=== PATIENT | male | born 1980 | race Caucasian/White ===

== ENCOUNTER 2017-10-20 14:30 | Inpatient (IN) | payer OTHER ==
[2017-10-20 17:02] VITALS: BMI 29.7
--- NOTE | 2017-10-20 19:44 | HP ---
COWS - Scale Resting Pulse: 0= [place] 80 or Below Sweatin=Flushed/Facial Moisture Restless Observation: 1= Difficult to Sit Still Pupil Size: 1= Pupils >than Normal Bone or Joint Aches: 1= Mild Discomfort Runny Nose/ Eye Tearin= Runny Nose/Eyes GI Upset > 30mins: 2= Nausea/Diarrhea Tremor Observation: 2= Slight Tremor Visible Yawning Observation: 1= 1-2x During Session Anxiety or Irritability: 1=Feels Anxious/Irritable Goose Flesh Skin: 3=Piloerection COWS Score: 16 CIWA Score - CIWA Score Nausea/Vomitin Muscle Tremors: 4-Moderate,w/Arms Extend Anxiety: 2 Agitation: 2 Paroxysmal Sweats: 3 Orientation: 0-Oriented Tacttile Disturbances: 2-Mild Itch/Numbness/Burn Auditory Disturbances: 1-Very Mild Visual Disturbances: 1-Very Mild Sensitivity Headache: 3-Moderate CIWA-Ar Total Score: 20 Admission ROS S - HPI Chief Complaint: I am here for Detox and Rehab. Allergies/Adverse Reactions: Allergies Allergy/AdvReac Type Severity Reaction Status Date / Time No Known Allergies Allergy Verified 10/20/17 19:04 History of Present Illness: 37 yo male with extensive history of opiod and alcohol dependence is here seeking admission to detox. Patient does not have a significant period of sobriety. Exam Limitations: No Limitations - Ebola screening Have you traveled outside of the country in the last 21 days: No (N) Have you had contact with anyone from an Ebola affected area: No Have you been sick,other than usual withdrawal symptoms: No Do you have a fever: No - Review of Systems Constitutional: Night Sweats, Changes in sleep, Unintentional Wgt. Loss EENT: reports: Sinus Pressure Respiratory: reports: Shortness of Breath ("I feel I just cant breathe as good as I normally can") Cardiac: reports: Palpitations GI: reports: Diarrhea : reports: No Symptoms Reported, Other (Hx Hep C) Musculoskeletal: reports: Joint Swelling Integumentary: reports: Pruritus Neuro: reports: Seizure (Last Seizure Summer 2016), Tingling, Dizziness Endocrine: reports: See HPI Hematology: reports: No Symptoms Reported Psychiatric: reports: Judgement Intact, Orientated x3, Anxious, Depressed Other Systems: Reviewed and Negative Patient History - Patient Medical History Hx Anemia: No Hx Asthma: No Hx Chronic Obstructive Pulmonary Disease (COPD): No Hx Cancer: No Hx Cardiac Disorders: No Hx Congestive Heart Failure: No Hx Hypertension: Yes (dx of HTN no meds ) Hx Hypercholesterolemia: No Hx Pacemaker: No HX Cerebrovascular Accident: No Hx Seizures: Yes (hx drug induces seizures, last seizure Summer 2016) Hx Dementia: No Hx Diabetes: No Hx Gastrointestinal Disorders: No Hx Liver Disease: Yes (Hep C) Hx Genitourinary Disorders: No Hx Sexually Transmitted Disorders: No Hx Renal Disease (ESRD): No Hx Human Immunodeficiency Virus (HIV): No Hx Hepatitis C: Yes Hx Depression: Yes Hx Suicide Attempt: No Hx Bipolar Disorder: No Hx Schizophrenia: No - Patient Surgical History Past Surgical History: No Hx Neurologic Surgery: No Hx Cataract Extraction: No Hx Cardiac Surgery: No Hx Lung Surgery: No Hx Breast Surgery: No Hx Breast Biopsy: No Hx Abdominal Surgery: No Hx Appendectomy: No Hx Cholecystectomy: No Hx Genitourinary Surgery: No Hx Section: No Hx Orthopedic Surgery: No Anesthesia Reaction: No - PPD History Previous Implant?: Yes Documented Results: Negative w/o proof PPD to be Administered?: Yes - Reproductive History Patient is a Female of Child Bearing Age (11 -55 yrs old): No - Smoking Cessation Smoking history: Current every day smoker Have you smoked in the past 12 months: Yes Aproximately how many cigarettes per day: 2 Hx Chewing Tobacco Use: No Initiated information on smoking cessation: Yes 'Breaking Loose' booklet given: 10/20/17 - Substance & Tx. History Hx Alcohol Use: Yes Hx Substance Use: Yes (Heroin) Substance Use Type: Alcohol, Heroin Hx Substance Use Treatment: Yes (unable to recall) - Substances Abused Alcohol Route: Oral Frequency: Daily Amount used: LIQUOR- 2 PINTS, Age of first use: 14 Date of Last Use: 10/19/17 Heroin Route: Injection Frequency: Daily Amount used: 15 BAGS Age of first use: 24 Date of Last Use: 10/19/17 Family Disease History - Family Disease History Family Disease History: Other: Father (Alive : No Significant hx ), Mother ( : unkown ) Admission Physical Exam BHS - Vital Signs Vital Signs: Vital Signs - 24 hr 10/20/17 17:01 Temperature 98 F Pulse Rate 73 Respiratory 18 Rate Blood Pressure 137/73 - Physical General Appearance: Yes: No Apparent Distress, Disheveled, Intoxicated HEENTM: Yes: Hearing grossly Normal, Normal ENT Inspection, Normocephalic, Normal Voice, TED, Pharynx Normal Respiratory: Yes: Normal Breath Sounds, No Respiratory Distress, No Accessory Muscle Use Neck: Yes: No masses,lesions,Nodules, Trachea in good position Breast: Yes: Breast Exam Deferred Cardiology: Yes: Regular Rhythm, Regular Rate, S1, S2 Abdominal: Yes: Within Normal Limits Genitourinary: Yes: Other (reports no problems) Back: Yes: Within Normal Limits Musculoskeletal: Yes: Within Normal Limits Extremities: Yes: Within Normal Limits Neurological: Yes: Fully Oriented, Alert, Normal Mood/Affect, Normal Response Integumentary: Yes: Normal Color, Dry, Warm, Track B[place] (Bilateral upper extremities) Lymphatic: Yes: Within Normal Limits - Diagnostic (1) Opioid dependence Current Visit: Yes Status: Chronic Qualifiers: Substance use status: with unspecified opioid-induced disorder Qualified Code(s): F11.29 - Opioid dependence with unspecified opioid-induced disorder (2) Alcohol dependence Current Visit: Yes Status: Chronic Qualifiers: Substance use status: unspecified alcohol-induced disorder Qualified Code(s ): F10.29 - Alcohol dependence with unspecified alcohol-induced disorder (3) History of seizure Current Visit: Yes Status: Chronic (4) Tobacco use Current Visit: Yes Status: Chronic (5) Hypertension Current Visit: Yes Status: Chronic Qualifiers: Hypertension type: essential hypertension Qualified Code(s): I10 - Essential (primary) hypertension Comment: Reports not taking medication Cleared for Admission [facility] - Detox or Rehab [facility] Level of Care: Medically Managed Detox Regimen/Protocol: Methadone/Librium [facility] Breath Alcohol Content Breath Alcohol Content: 0 Urine Drug Screen - Results Drug Screen Negative: No Urine Drug Screen Results: THC-Marijuana, MIS-Cocaine, OPI-Opiates, BZO- Benzodiazepines, MTD-Methadone
[2017-10-20] MEDS ORDERED: MAG HYDROX/AL HYDROX/SIMETH 30 ML UNIT-DOSE CUP PO PRN (20:24)
[2017-10-20] MEDS ORDERED: METHADONE HCL 10 MG TABLET (FOR DETOX USE ONLY) PO ONE ×2 (20:24→23:00)
[2017-10-20] MEDS ORDERED: MAGNESIUM CITRATE 300 ML BOTTLE PO PRN (20:24)
[2017-10-20] MEDS ORDERED: IBUPROFEN 400 MG TABLET (FP) PO PRN (20:24)
[2017-10-20] MEDS ORDERED: MENTHOL/PHENOL 1 EACH UD MM PRN (20:24)
[2017-10-20] MEDS ORDERED: chlordiazePOXIDE HCL 25 MG CAPSULE PO ONE (20:24)
[2017-10-20] MEDS ORDERED: ACETAMINOPHEN 325 MG TABLET (FP) PO PRN (20:24)
[2017-10-20] MEDS ORDERED: chlordiazePOXIDE HCL 25 MG CAPSULE PO PRN (20:24)
[2017-10-20] MEDS ORDERED: NICOTINE POLACRILEX 2 MG GUM BC PRN (20:24)
[2017-10-20] MEDS ORDERED: guaiFENesin/D-METHORPHAN HB 10 ML UNIT-DOSE CUPS PO PRN (20:24)
[2017-10-20] MEDS ORDERED: MAGNESIUM HYDROX 2400MG/30ML ORAL SUSPENSION 30 ML CUP PO PRN (20:24)
[2017-10-20] MEDS ORDERED: P-EPHED 60MG/TRIPROLIDI 2.5MG TABLET PO PRN (20:24)
[2017-10-20] MEDS: THIAMINE HCL 100 MG TABLET (FP) PO SCH (21:17)
[2017-10-20] MEDS: chlordiazePOXIDE HCL 25 MG CAPSULE PO SCH (22:39)
[2017-10-20 23:29] LABS: URINE APPEARANCE TURBID; URINE BILIRUBIN NEGATIVE (NEGATIVE); URINE BLOOD NEGATIVE (NEGATIVE); URINE COLOR YELLOW; URINE GLUCOSE (UA) NEGATIVE (NEGATIVE); URINE KETONE NEGATIVE (NEGATIVE); URINE LEUK ESTERASE NEGATIVE (NEGATIVE); URINE NITRITE NEGATIVE (NEGATIVE); URINE PROTEIN NEGATIVE (NEGATIVE); URINE UROBILINOGEN NEGATIVE mg/dL (0.2-1.0)
[2017-10-21] MEDS: chlordiazePOXIDE HCL 25 MG CAPSULE PO SCH ×4 (05:35→22:20)
[2017-10-21] MEDS ORDERED: METHADONE HCL 10 MG TABLET (FOR DETOX USE ONLY) PO SCH (10:00)
[2017-10-21] MEDS: PRENATAL VITAMINS W/ FOLIC ACID TABLET (FP) PO SCH (10:01)
[2017-10-21] MEDS: NICOTINE 14 MG/24 HOURS TOPICAL PATCH TD SCH (10:01)
--- NOTE | 2017-10-21 10:26 | CONSULT ---
[facility] Psychiatric Consult - Data Date of interview: 10/21/17 Admission source: [facility] Identifying data: First admission to [facility] for this 37 y/o male seeking detox treatment on for alcohol and heroin dependence ( toxicology positive for cocaine and marihuana as well).Patient is without children,homeless,unemployed and currently supported on Public Assistance. Substance Abuse History: Confirmed by patient in this interview.Patient admits to sporadic use of cannabis and cocaine.Details in current [facility] report : Smoking history: Current every day smoker. Have you smoked in the past 12 months: Yes. Aproximately how many cigarettes per day: 2. Hx Chewing Tobacco Use: No. Initiated information on smoking cessation: Yes. 'Breaking Loose' booklet given: 10/20/17. - Substance & Tx. History. Hx Alcohol Use: Yes. Hx Substance Use: Yes (Heroin). Substance Use Type: Alcohol, Heroin. Hx Substance Use Treatment: Yes (unable to recall). - Substances Abused. Alcohol. Route: Oral. Frequency: Daily. Amount used: LIQUOR- 2 PINTS,. Age of first use: 14. Date of Last Use: 10/19/17. Heroin. Route: Injection. Frequency: Daily. Amount used: 15 BAGS. Age of first use: 24. Date of Last Use: 10/19/17 Medical History: Hepatitis C. Psychiatric History: Patient admits to one psychiatric hospitalization at [facility] (2017).Diagnosed with MDD.Prescribed [id number] mg/day + trazodone 25 mg/ hs.Mr Maciel indicates that he has no contact with psychiatrists and that he depends upon his primary care providers for medications refills.Denies history of suicide attempts. Physical/Sexual Abuse/Trauma History: Patient denies. Additional Comment: Urine Drug Screen Results: THC-Marijuana, MIS-Cocaine, OPI- Opiates, BZO-Benzodiazepines, MTD-Methadone.Noted. Mental Status Exam - Mental Status Exam Alert and Oriented to: Time, Place, Person Cognitive Function: Good Patient Appearance: Well Groomed (tattoos on right arm) Mood: Withdrawn (dysphoric), Anxious, Hopeful Affect: Mood Congruent, Constricted Patient Behavior: Passive, Fatigued, Cooperative Speech Pattern: Clear, Appropriate (malagasy-speaking) Voice Loudness: Normal Thought Process: Intact, Goal Oriented Thought Disorder: Not Present Hallucinations: Denies Suicidal Ideation: Denies Homicidal Ideation: Denies Insight/Judgement: Poor Sleep: Poorly, Difficulty falling asleep Appetite: Good Muscle strength/Tone: Normal Gait/Station: Normal Psychiatric Findings - Problem List ([place] 1, 2,3) (1) Alcohol dependence Current Visit: Yes Status: Acute Qualifiers: Substance use status: unspecified alcohol-induced disorder Qualified Code(s ): F10.29 - Alcohol dependence with unspecified alcohol-induced disorder (2) Opioid dependence Current Visit: Yes Status: Acute Qualifiers: Substance use status: with unspecified opioid-induced disorder Qualified Code(s): F11.29 - Opioid dependence with unspecified opioid-induced disorder (3) Cocaine abuse Current Visit: Yes Status: Acute (4) Marijuana abuse Current Visit: Yes Status: Acute (5) Nicotine dependence Current Visit: Yes Status: Acute (6) Substance induced mood disorder Current Visit: Yes Status: Acute (7) Insomnia Current Visit: Yes Status: Acute - Initial Treatment Plan Initial Treatment Plan: Psychoeducation and support provided.Sleep hygiene.Detoxification in progress.Medications : trazodone 50 mg po hs + celexa 10 mg po daily.Ordered.Side effects/benefits of both drugs are discused with the patient.Mr Maciel is made aware of risk of priapism (trazodone),oversedation ,cardiovascular adverse events and suicidal ideation (celexa).No reported history of adverse issues with these medications according to patient.Consent ( verbal) given.Observation.
[2017-10-21 11:05] LABS: HEMATOCRIT 39.5 % (35.4-49); MCH 29.4 pg (25.7-33.7); MCHC 32.8 g/dl (32.0-35.9); MEAN CELL VOLUME 89.6 fl (80-96); PLATELET COUNT 186 K/MM3 (134-434); RBC 4.41 M/mm3 (4.00-5.60); RDW 13.9 % (11.9-15.9); WHITE BLOOD COUNT 5.6 K/mm3 (4.0-10.0)
[2017-10-21 11:07] LABS: CHLORIDE 106 mmol/L (98-107); POTASSIUM 4.4 mmol/L (3.5-5.1); SODIUM 138 mmol/L (136-145)
[2017-10-21 11:13] LABS: ALBUMIN 2.7 g/dl (3.4-5.0); ALK PHOS 123 U/L (45-117); ANION GAP 6 (8-16); BILIRUBIN,TOTAL 0.5 mg/dL (0.2-1.0); BLOOD UREA NITROGEN 17 mg/dL (7-18); CALCIUM 8.2 mg/dL (8.5-10.1); CO2 26 mmol/L (21-32); CREATININE 0.7 mg/dL (0.7-1.3); GLUCOSE,RANDOM 105 mg/dL (74-106); SGOT/AST 54 U/L (15-37); SGPT/ALT 93 U/L (12-78); TOT PROT 6.2 g/dl (6.4-8.2)
--- NOTE | 2017-10-21 12:04 | PN ---
S CIWA - CIWA Score Nausea/Vomitin Muscle Tremors: 2 Anxiety: 2 Agitation: 2 Paroxysmal Sweats: 2 Orientation: 0-Oriented Tacttile Disturbances: 2-Mild Itch/Numbness/Burn Auditory Disturbances: 1-Very Mild Visual Disturbances: 1-Very Mild Sensitivity Headache: 2-Mild CIWA-Ar Total Score: 16 BHS COWS - Scale Resting Pulse: 0= [place] 80 or Below Sweatin= Chills/Flushing Restless Observation: 1= Difficult to Sit Still Pupil Size: 0= Normal to Room Light Bone or Joint Aches: 2= Severe Diffuse Aches Runny Nose/ Eye Tearin= Nasal Congestion GI Upset > 30mins: 2= Nausea/Diarrhea Tremor Observation of Outstretched Hands: 2= Slight Tremor Visible Yawning Observation: 1= 1-2x During Session Anxiety or Irritability: 2=Irritable/Anxious Goose Flesh Skin: 3=Piloerection COWS Score: 15 BHS Progress Note (SOAP) Subjective: Back pain,diarrhea, vomiting, headache and generalized body aches, interrupted sleep Objective: 10/21/17 12:03 Vital Signs 10/21/17 10/21/17 06:12 09:38 Temperature 96 F L 97.4 F L Pulse Rate 64 69 Respiratory 18 20 Rate Blood Pressure 112/66 115/63 Laboratory Last Values WBC 5.6 K/mm3 (4.0-10.0) 10/21/17 08:00 RBC 4.41 M/mm3 (4.00-5.60) 10/21/17 08:00 Hgb 13.0 GM/dL (11.7-16.9) 10/21/17 08:00 Hct 39.5 % (35.4-49) 10/21/17 08:00 MCV 89.6 fl (80-96) 10/21/17 08:00 MCH 29.4 pg (25.7-33.7) 10/21/17 08:00 MCHC 32.8 g/dl (32.0-35.9) 10/21/17 08:00 RDW 13.9 % (11.9-15.9) 10/21/17 08:00 Plt Count 186 K/MM3 (134-434) 10/21/17 08:00 MPV 11.0 fl (7.5-11.1) 10/21/17 08:00 Sodium 138 mmol/L (136-145) 10/21/17 08:00 Potassium 4.4 mmol/L (3.5-5.1) 10/21/17 08:00 Chloride 106 mmol/L (98-107) 10/21/17 08:00 Carbon Dioxide 26 mmol/L (21-32) 10/21/17 08:00 Anion Gap 6 (8-16) L 10/21/17 08:00 BUN 17 mg/dL (7-18) 10/21/17 08:00 Creatinine 0.7 mg/dL (0.7-1.3) 10/21/17 08:00 Creat Clearance w eGFR > 60 (>60) 10/21/17 08:00 Random Glucose 105 mg/dL (74-106) 10/21/17 08:00 Calcium 8.2 mg/dL (8.5-10.1) L 10/21/17 08:00 Total Bilirubin 0.5 mg/dL (0.2-1.0) 10/21/17 08:00 AST 54 U/L (15-37) H 10/21/17 08:00 ALT 93 U/L (12-78) H 10/21/17 08:00 Alkaline Phosphatase 123 U/L (45-117) H 10/21/17 08:00 Total Protein 6.2 g/dl (6.4-8.2) L 10/21/17 08:00 Albumin 2.7 g/dl (3.4-5.0) L 10/21/17 08:00 Urine Color Yellow 10/20/17 20:57 Urine Appearance Turbid 10/20/17 20:57 Urine pH 5.0 (5.0-8.0) 10/20/17 20:57 Ur Specific [place] 1.026 (1.001-1.035) 10/20/17 20:57 Urine Protein Negative (NEGATIVE) 10/20/17 20:57 Urine Glucose (UA) Negative (NEGATIVE) 10/20/17 20:57 Urine Ketones Negative (NEGATIVE) 10/20/17 20:57 Urine Blood Negative (NEGATIVE) 10/20/17 20:57 Urine Nitrite Negative (NEGATIVE) 10/20/17 20:57 Urine Bilirubin Negative (NEGATIVE) 10/20/17 20:57 Urine Urobilinogen Negative mg/dL (0.2-1.0) 10/20/17 20:57 Ur Leukocyte Esterase Negative (NEGATIVE) 10/20/17 20:57 Labs noted Assessment: 10/21/17 12:04 withdrawal sx Plan: Continue detox
--- NOTE | 2017-10-21 13:39 | EKG ---
Test Reason : Blood Pressure : / mmHG Vent. Rate : 067 BPM Atrial Rate : 067 BPM P-R Int : 140 ms QRS Dur : 112 ms QT Int : 424 ms P-R-T Axes : -01 053 056 degrees QTc Int : 448 ms NORMAL SINUS RHYTHM INCOMPLETE RBBB NO PREVIOUS ECGS AVAILABLE Confirmed by TOMI MEJÍA MD ([id number]) on 10/21/2017 1:38:53 PM Referred By: Confirmed By:TOMI MEJÍA MD
[2017-10-21] MEDS: THIAMINE HCL 100 MG TABLET (FP) PO SCH (22:20)
[2017-10-21] MEDS: traZODone HCL 50 MG TABLET (FP) PO SCH (22:20)
[2017-10-22] MEDS: chlordiazePOXIDE HCL 25 MG CAPSULE PO SCH ×3 (06:15→16:49)
[2017-10-22] MEDS: NICOTINE 14 MG/24 HOURS TOPICAL PATCH TD SCH (10:12)
[2017-10-22] MEDS: METHADONE HCL 5 MG TABLET (FOR DETOX USE ONLY) PO SCH (10:12)
[2017-10-22] MEDS: CITALOPRAM HYDROBROMIDE 10 MG TABLET (FP) PO SCH (10:12)
[2017-10-22] MEDS: PRENATAL VITAMINS W/ FOLIC ACID TABLET (FP) PO SCH (10:12)
--- NOTE | 2017-10-22 14:40 | PN ---
S CIWA - CIWA Score Nausea/Vomitin-No Nausea/No Vomiting Muscle Tremors: 4-Moderate,w/Arms Extend Anxiety: 4-Mod. Anxious/Guarded Agitation: 4-Moderately Restless Paroxysmal Sweats: 3 Orientation: 0-Oriented Tacttile Disturbances: 0-None Auditory Disturbances: 0-None Visual Disturbances: 0-None Headache: 0-None Present CIWA-Ar Total Score: 15 S COWS - Scale Resting Pulse: 0= [place] 80 or Below Sweatin=Flushed/Facial Moisture Restless Observation: 1= Difficult to Sit Still Pupil Size: 0= Normal to Room Light Bone or Joint Aches: 1= Mild Discomfort Runny Nose/ Eye Tearin= Runny Nose/Eyes GI Upset > 30mins: 1= Stomach Cramp Tremor Observation of Outstretched Hands: 2= Slight Tremor Visible Yawning Observation: 1= 1-2x During Session Anxiety or Irritability: 2=Irritable/Anxious Goose Flesh Skin: 0=Smooth Skin COWS Score: 12 S Progress Note (SOAP) Subjective: Tremors,sweating,interrupted sleep,restless,body aches Objective: 10/22/17 14:40 Vital Signs - 8 hr 10/22/17 10/22/17 09:48 14:25 Temperature 96.3 F L 97.4 F L Pulse Rate 67 71 Respiratory 20 20 Rate Blood Pressure 110/69 102/62 Laboratory Tests 10/20/17 10/21/17 10/21/17 20:57 08:00 08:00 WBC 5.6 RBC 4.41 Hgb 13.0 Hct 39.5 MCV 89.6 MCH 29.4 MCHC 32.8 RDW 13.9 Plt Count 186 MPV 11.0 Sodium 138 Potassium 4.4 Chloride 106 Carbon Dioxide 26 Anion Gap 6 L BUN 17 Creatinine 0.7 Creat Clearance w eGFR > 60 Random Glucose 105 Calcium 8.2 L Total Bilirubin 0.5 AST 54 H ALT 93 H Alkaline Phosphatase 123 H Total Protein 6.2 L Albumin 2.7 L Urine Color Yellow Urine Appearance Turbid Urine pH 5.0 Ur Specific [place] 1.026 Urine Protein Negative Urine Glucose (UA) Negative Urine Ketones Negative Urine Blood Negative Urine Nitrite Negative Urine Bilirubin Negative Urine Urobilinogen Negative Ur Leukocyte Esterase Negative RPR Titer 10/21/17 08:00 WBC RBC Hgb Hct MCV MCH MCHC RDW Plt Count MPV Sodium Potassium Chloride Carbon Dioxide Anion Gap BUN Creatinine Creat Clearance w eGFR Random Glucose Calcium Total Bilirubin AST ALT Alkaline Phosphatase Total Protein Albumin Urine Color Urine Appearance Urine pH Ur Specific [place] Urine Protein Urine Glucose (UA) Urine Ketones Urine Blood Urine Nitrite Urine Bilirubin Urine Urobilinogen Ur Leukocyte Esterase RPR Titer Nonreactive labs noted Assessment: 10/22/17 14:40 Withdrawal sx. Plan: Continue detox
[2017-10-22] MEDS: traZODone HCL 50 MG TABLET (FP) PO SCH (22:10)
[2017-10-22] MEDS: chlordiazePOXIDE 5 MG CAPSULE PO SCH (22:10)
[2017-10-22] MEDS: THIAMINE HCL 100 MG TABLET (FP) PO SCH (22:10)
[2017-10-22] MEDS: hydrOXYzine PAMOATE 50 MG CAPSULE (FP) PO PRN (22:10)
[2017-10-23] MEDS: chlordiazePOXIDE 5 MG CAPSULE PO SCH ×2 (04:44→10:11)
[2017-10-23] MEDS: METHADONE HCL 5 MG TABLET (FOR DETOX USE ONLY) PO SCH (10:10)
[2017-10-23] MEDS: CITALOPRAM HYDROBROMIDE 10 MG TABLET (FP) PO SCH (10:11)
[2017-10-23] MEDS: NICOTINE 14 MG/24 HOURS TOPICAL PATCH TD SCH (10:11)
[2017-10-23] MEDS: PRENATAL VITAMINS W/ FOLIC ACID TABLET (FP) PO SCH (10:11)
[2017-10-23] MEDS: LOPERAMIDE HCL 2 MG CAPSULE PO PRN ×2 (10:13→17:27)
--- NOTE | 2017-10-23 11:25 | PN ---
[facility] CIWA - CIWA Score Nausea/Vomitin-No Nausea/No Vomiting Muscle Tremors: 4-Moderate,w/Arms Extend Anxiety: 4-Mod. Anxious/Guarded Agitation: 4-Moderately Restless Paroxysmal Sweats: 1-Minimal [place]ms Moist Orientation: 0-Oriented Tacttile Disturbances: 3-Moderate Itch/Numb/Burn Auditory Disturbances: 0-None Visual Disturbances: 0-None Headache: 0-None Present CIWA-Ar Total Score: 16 S Progress Note (SOAP) Subjective: ANXIETY,SWEATS,FATIGUE,INTERMITTENT SLEEP. Objective: 10/23/17 11:24 Vital Signs Temperature 96.5 F L 10/23/17 10:01 Pulse Rate 70 10/23/17 10:01 Respiratory Rate 18 10/23/17 10:01 Blood Pressure 118/74 10/23/17 10:01 O2 Sat by Pulse Oximetry (%) Laboratory Last Values WBC 5.6 K/mm3 (4.0-10.0) 10/21/17 08:00 RBC 4.41 M/mm3 (4.00-5.60) 10/21/17 08:00 Hgb 13.0 GM/dL (11.7-16.9) 10/21/17 08:00 Hct 39.5 % (35.4-49) 10/21/17 08:00 MCV 89.6 fl (80-96) 10/21/17 08:00 MCH 29.4 pg (25.7-33.7) 10/21/17 08:00 MCHC 32.8 g/dl (32.0-35.9) 10/21/17 08:00 RDW 13.9 % (11.9-15.9) 10/21/17 08:00 Plt Count 186 K/MM3 (134-434) 10/21/17 08:00 MPV 11.0 fl (7.5-11.1) 10/21/17 08:00 Sodium 138 mmol/L (136-145) 10/21/17 08:00 Potassium 4.4 mmol/L (3.5-5.1) 10/21/17 08:00 Chloride 106 mmol/L (98-107) 10/21/17 08:00 Carbon Dioxide 26 mmol/L (21-32) 10/21/17 08:00 Anion Gap 6 (8-16) L 10/21/17 08:00 BUN 17 mg/dL (7-18) 10/21/17 08:00 Creatinine 0.7 mg/dL (0.7-1.3) 10/21/17 08:00 Creat Clearance w eGFR > 60 (>60) 10/21/17 08:00 Random Glucose 105 mg/dL (74-106) 10/21/17 08:00 Calcium 8.2 mg/dL (8.5-10.1) L 10/21/17 08:00 Total Bilirubin 0.5 mg/dL (0.2-1.0) 10/21/17 08:00 AST 54 U/L (15-37) H 10/21/17 08:00 ALT 93 U/L (12-78) H 10/21/17 08:00 Alkaline Phosphatase 123 U/L (45-117) H 10/21/17 08:00 Total Protein 6.2 g/dl (6.4-8.2) L 10/21/17 08:00 Albumin 2.7 g/dl (3.4-5.0) L 10/21/17 08:00 Urine Color Yellow 10/20/17 20:57 Urine Appearance Turbid 10/20/17 20:57 Urine pH 5.0 (5.0-8.0) 10/20/17 20:57 Ur Specific [place] 1.026 (1.001-1.035) 10/20/17 20:57 Urine Protein Negative (NEGATIVE) 10/20/17 20:57 Urine Glucose (UA) Negative (NEGATIVE) 10/20/17 20:57 Urine Ketones Negative (NEGATIVE) 10/20/17 20:57 Urine Blood Negative (NEGATIVE) 10/20/17 20:57 Urine Nitrite Negative (NEGATIVE) 10/20/17 20:57 Urine Bilirubin Negative (NEGATIVE) 10/20/17 20:57 Urine Urobilinogen Negative mg/dL (0.2-1.0) 10/20/17 20:57 Ur Leukocyte Esterase Negative (NEGATIVE) 10/20/17 20:57 RPR Titer Nonreactive (NONREACTIVE) 10/21/17 08:00 Assessment: 10/23/17 11:24 WITHDRAWAL SX Plan: CONTINUE DETOX INCREASE BENADRYL 100 MG PO HS
[2017-10-23] MEDS: chlordiazePOXIDE HCL 10 MG CAPSULE PO SCH ×3 (17:25→22:46)
[2017-10-23] MEDS: THIAMINE HCL 100 MG TABLET (FP) PO SCH (22:36)
[2017-10-23] MEDS: traZODone HCL 50 MG TABLET (FP) PO SCH (22:36)
[2017-10-23] MEDS: hydrOXYzine PAMOATE 50 MG CAPSULE (FP) PO PRN (22:37)
[2017-10-23] MEDS ORDERED: chlordiazePOXIDE HCL 10 MG CAPSULE PO SCH (23:00)
[2017-10-24] MEDS: chlordiazePOXIDE HCL 10 MG CAPSULE PO SCH (06:04)
[2017-10-24 06:42] VITALS: BP 113/68; PULSE 88; TEMP 97.2
--- NOTE | 2017-10-24 07:20 | DS ---
[facility] Detox Discharge Summary Admission Date: 10/20/17 Discharge Date: 10/24/17 - History Present History: Alcohol Dependence, Opioid Dependence Additional Comments: Pt. requested an early discharge to attend an HRA appointment on 10/24/17. VSS. No withdrawal symptoms noted or reported. - Physical Exam Results Vital Signs: Vital Signs Temperature 97.2 F L 10/24/17 06:41 Pulse Rate 88 10/24/17 06:41 Respiratory Rate 18 10/24/17 06:41 Blood Pressure 113/68 10/24/17 06:41 O2 Sat by Pulse Oximetry (%) Pertinent Admission Physical Exam Findings: Laboratory Last Values WBC 5.6 K/mm3 (4.0-10.0) 10/21/17 08:00 RBC 4.41 M/mm3 (4.00-5.60) 10/21/17 08:00 Hgb 13.0 GM/dL (11.7-16.9) 10/21/17 08:00 Hct 39.5 % (35.4-49) 10/21/17 08:00 MCV 89.6 fl (80-96) 10/21/17 08:00 MCH 29.4 pg (25.7-33.7) 10/21/17 08:00 MCHC 32.8 g/dl (32.0-35.9) 10/21/17 08:00 RDW 13.9 % (11.9-15.9) 10/21/17 08:00 Plt Count 186 K/MM3 (134-434) 10/21/17 08:00 MPV 11.0 fl (7.5-11.1) 10/21/17 08:00 Sodium 138 mmol/L (136-145) 10/21/17 08:00 Potassium 4.4 mmol/L (3.5-5.1) 10/21/17 08:00 Chloride 106 mmol/L (98-107) 10/21/17 08:00 Carbon Dioxide 26 mmol/L (21-32) 10/21/17 08:00 Anion Gap 6 (8-16) L 10/21/17 08:00 BUN 17 mg/dL (7-18) 10/21/17 08:00 Creatinine 0.7 mg/dL (0.7-1.3) 10/21/17 08:00 Creat Clearance w eGFR > 60 (>60) 10/21/17 08:00 Random Glucose 105 mg/dL (74-106) 10/21/17 08:00 Calcium 8.2 mg/dL (8.5-10.1) L 10/21/17 08:00 Total Bilirubin 0.5 mg/dL (0.2-1.0) 10/21/17 08:00 AST 54 U/L (15-37) H 10/21/17 08:00 ALT 93 U/L (12-78) H 10/21/17 08:00 Alkaline Phosphatase 123 U/L (45-117) H 10/21/17 08:00 Total Protein 6.2 g/dl (6.4-8.2) L 10/21/17 08:00 Albumin 2.7 g/dl (3.4-5.0) L 10/21/17 08:00 Urine Color Yellow 10/20/17 20:57 Urine Appearance Turbid 10/20/17 20:57 Urine pH 5.0 (5.0-8.0) 10/20/17 20:57 Ur Specific [place] 1.026 (1.001-1.035) 10/20/17 20:57 Urine Protein Negative (NEGATIVE) 10/20/17 20:57 Urine Glucose (UA) Negative (NEGATIVE) 10/20/17 20:57 Urine Ketones Negative (NEGATIVE) 10/20/17 20:57 Urine Blood Negative (NEGATIVE) 10/20/17 20:57 Urine Nitrite Negative (NEGATIVE) 10/20/17 20:57 Urine Bilirubin Negative (NEGATIVE) 10/20/17 20:57 Urine Urobilinogen Negative mg/dL (0.2-1.0) 10/20/17 20:57 Ur Leukocyte Esterase Negative (NEGATIVE) 10/20/17 20:57 RPR Titer Nonreactive (NONREACTIVE) 10/21/17 08:00 Labs noted - Treatment Hospital Course: Detox Protocol Followed, Detoxed Safely, Responded well, Discharged Condition Good - Medication Discharge Medications: Ambulatory Orders Trazodone HCl [Desyrel -] 50 mg PO HS #30 tablet 10/21/17 - Diagnosis (1) Alcohol dependence with uncomplicated withdrawal Current Visit: Yes Status: Chronic (2) Opioid dependence with withdrawal Current Visit: Yes Status: Chronic (3) Nicotine dependence Current Visit: Yes Status: Chronic Qualifiers: Nicotine product type: cigarettes Substance use status: in withdrawal Qualified Code(s): F17.213 - Nicotine dependence, cigarettes, with withdrawal - AMA Did Patient Leave Against Medical Advice: No
[2017-10-24] MEDS ORDERED: METHADONE HCL 10 MG TABLET (FOR DETOX USE ONLY) PO SCH (10:00)
[2017-10-25] MEDS ORDERED: METHADONE HCL 5 MG TABLET (FOR DETOX USE ONLY) PO SCH (06:00)
== END 2017-10-24 07:10 | disposition home or self-care (01) | DRG 773 ==
LOC: YASAS 14:30 → Y3N 19:16
PROVIDERS: ADMIT Internal Medicine; ATTEND Internal Medicine
PROC: HZ2ZZZZ Detoxification Services for Substance Abuse Treatment (ICD-10-PCS; principal; 2017-10-20)
DX: F11.23 Opioid dependence with withdrawal (principal); F10.230 Alcohol dependence with withdrawal, uncomplicated; F14.10 Cocaine abuse, uncomplicated; F12.10 Cannabis abuse, uncomplicated; F17.213 Nicotine dependence, cigarettes, with withdrawal; F19.24 Other psychoactive substance dependence with psychoactive substance-induced mood disorder; I10 Essential (primary) hypertension; G47.00 Insomnia, unspecified; B18.2 Chronic viral hepatitis C; Z86.69 Personal history of other diseases of the nervous system and sense organs; Z59.0 Homelessness
CPT/HCPCS: 36415; 80053; 81003; 85027; 86593; 93005; 93010

== ENCOUNTER 2018-02-16 16:51 | Inpatient (IN) | payer OTHER ==
[2018-02-16 18:09] VITALS: BMI 29.0
--- NOTE | 2018-02-16 19:28 | HP ---
COWS - Scale Resting Pulse: 0= [place] 80 or Below Sweatin= Chills/Flushing Restless Observation: 1= Difficult to Sit Still Pupil Size: 0= Normal to Room Light Bone or Joint Aches: 2= Severe Diffuse Aches Runny Nose/ Eye Tearin= Runny Nose/Eyes GI Upset > 30mins: 2= Nausea/Diarrhea (Nausea w/o diarrhea or vomiting.) Tremor Observation: 4= Gross Tremor/Twitching Yawning Observation: 0= None Anxiety or Irritability: 2=Irritable/Anxious Goose Flesh Skin: 0=Smooth Skin COWS Score: 14 CIWA Score - CIWA Score Nausea/Vomitin-Mild Nausea/No Vomiting Muscle Tremors: 4-Moderate,w/Arms Extend Anxiety: 4-Mod. Anxious/Guarded Agitation: 2 Paroxysmal Sweats: 1-Minimal Palms Moist Orientation: 0-Oriented Tacttile Disturbances: 0-None Auditory Disturbances: 0-None Visual Disturbances: 0-None (Hx. black outs. Denies hx. seizures) Headache: 3-Moderate (R/t withdrawal) CIWA-Ar Total Score: 15 Admission ROS [facility] - HPI Chief Complaint: Having withdrawal from alcohol, heroin, and cocaine. Allergies/Adverse Reactions: Allergies Allergy/AdvReac Type Severity Reaction Status Date / Time No Known Allergies Allergy Verified 02/16/18 18:17 History of Present Illness: Here for detox from alcohol, heroin, street methadone, and cocaine. Last used methadone about 2 days ago.Unsure of methadone dose. Has had previous detox's. Denies prior tx with methadone or Suboxone. Denies benzo use despite (+) tox. Exam Limitations: No Limitations - Ebola screening Have you traveled outside of the country in the last 21 days: No (N) Have you had contact with anyone from an Ebola affected area: No Have you been sick,other than usual withdrawal symptoms: No Do you have a fever: No - Review of Systems Constitutional: Chills, Diaphoresis, Loss of Appetite (Off and on.), Changes in sleep (Difficult sleeping all the time. Difficulty falling asleep and staying asleep.) EENT: reports: Nose Congestion Respiratory: reports: No Symptoms reported Cardiac: reports: No Symptoms Reported GI: reports: Constipated (Moves bowels 2-3 x/week. No bleedng.), Nausea : reports: No Symptoms Reported Musculoskeletal: reports: Other (Generalized achy to sharp bone pain which increases when in withdrawal. Pain now a "7") Integumentary: reports: No Symptoms Reported Neuro: reports: Headache (Moderate. r/t w/drawal), Numbness (States legs fall asleep unrelated to activity.) Endocrine: reports: No Symptoms Reported Hematology: reports: No Symptoms Reported Psychiatric: reports: Mood/Affect Appropiate (Denies suicide or violent ideation.), Orientated x3 Patient History - Patient Medical History Hx Anemia: No Hx Asthma: No Hx Chronic Obstructive Pulmonary Disease (COPD): No Hx Cancer: No Hx Cardiac Disorders: No Hx Congestive Heart Failure: No Hx Hypertension: Yes (dx of HTN no meds ) Hx Hypercholesterolemia: No Hx Pacemaker: No HX Cerebrovascular Accident: No Hx Seizures: Yes (hx drug induces seizures, last seizure Summer 2016) Hx Dementia: No Hx Diabetes: No Hx Gastrointestinal Disorders: No Hx Liver Disease: Yes (Hep C - States rx'd and cured in 2002) Hx Genitourinary Disorders: No Hx Sexually Transmitted Disorders: No Hx Renal Disease (ESRD): No Hx Human Immunodeficiency Virus (HIV): No Hx Hepatitis C: Yes (Hep C - States rx'd and cured in 2002) Hx Depression: Yes (Rx'd in past for depression but stopped about 1 year ago. Denies S/) Hx Suicide Attempt: No Hx Bipolar Disorder: No Hx Schizophrenia: No - Patient Surgical History Past Surgical History: No Hx Neurologic Surgery: No Hx Cataract Extraction: No Hx Cardiac Surgery: No Hx Lung Surgery: No Hx Breast Surgery: No Hx Breast Biopsy: No Hx Abdominal Surgery: No Hx Appendectomy: No Hx Cholecystectomy: No Hx Genitourinary Surgery: No Hx Section: No Hx Orthopedic Surgery: No Anesthesia Reaction: No - PPD History Previous Implant?: Yes Documented Results: Negative w/proof Date: 10/22/17 (Here at [facility]) PPD to be Administered?: No - Smoking Cessation Smoking history: Current every day smoker Have you smoked in the past 12 months: Yes Aproximately how many cigarettes per day: 2 Hx Chewing Tobacco Use: No Initiated information on smoking cessation: Yes 'Breaking Loose' booklet given: 02/16/18 - Substance & Tx. History Hx Alcohol Use: Yes Hx Substance Use: Yes Substance Use Type: Alcohol, Cocaine, Heroin, Opiates (illict methadone ) - Substances Abused Heroin Route: Injection Frequency: Daily Amount used: 6 BAGS Age of first use: 22 Date of Last Use: 02/15/18 Alcohol Route: Oral Frequency: Daily Amount used: 6 PACKS Age of first use: 22 Date of Last Use: 02/16/18 Cocaine Route: Injection Frequency: 3-6 times per week Amount used: $10 Age of first use: 14 Date of Last Use: 02/15/18 Family Disease History - Family Disease History Family Disease History: Other: Father (Alive : No Significant hx ), Mother ( : unkown ) Admission Physical Exam [facility] - Vital Signs Vital Signs: Vital Signs - 24 hr 02/16/18 02/16/18 17:49 18:06 Temperature 97.3 F L 97.3 F L Pulse Rate 65 65 Respiratory 18 18 Rate Blood Pressure 121/71 121/71 - Physical HEENTM: Yes: Normocephalic, TED Respiratory: Yes: Lungs Clear, Normal Breath Sounds Neck: Yes: No masses,lesions,Nodules, Supple Breast: Yes: Breast Exam Deferred Cardiology: Yes: Regular Rhythm, Regular Rate Abdominal: Yes: Normal Bowel Sounds, Non Tender, Flat, Soft Genitourinary: Yes: Within Normal Limits Back: Yes: Normal Inspection Musculoskeletal: Yes: full range of Motion Extremities: Yes: Tremors (Tremors of hand and feet upon extension.) Neurological: Yes: Fully Oriented, Alert, Motor Strength 5/5 Integumentary: Yes: Track Bledsoe (Neck and arms.) Lymphatic: Yes: Within Normal Limits - Diagnostic (1) Cocaine dependence with withdrawal Current Visit: Yes Status: Acute (2) Insomnia Current Visit: Yes Status: Chronic (3) Alcohol dependence with uncomplicated withdrawal Current Visit: Yes Status: Acute (4) History of seizure Current Visit: No Status: Resolved (5) Nicotine dependence Current Visit: Yes Status: Chronic Qualifiers: Nicotine product type: cigarettes Substance use status: in withdrawal Qualified Code(s): F17.213 - Nicotine dependence, cigarettes, with withdrawal (6) Opioid dependence with withdrawal Current Visit: Yes Status: Acute Cleared for Admission [facility] - Detox or Rehab S Level of Care: Medically Managed Detox Regimen/Protocol: Methadone/Valium S Breath Alcohol Content Breath Alcohol Content: 0 Urine Drug Screen - Results Drug Screen Negative: No Urine Drug Screen Results: MIS-Cocaine, OPI-Opiates, BZO-Benzodiazepines, MTD- Methadone
[2018-02-16] MEDS ORDERED: diazePAM 5 MG TABLET PO PRN (19:56)
[2018-02-16] MEDS ORDERED: NICOTINE POLACRILEX 2 MG GUM BC PRN (19:56)
[2018-02-16] MEDS ORDERED: P-EPHED 60MG/TRIPROLIDI 2.5MG TABLET PO PRN (19:56)
[2018-02-16] MEDS ORDERED: MENTHOL/PHENOL 1 EACH UD MM PRN (19:56)
[2018-02-16] MEDS ORDERED: METHADONE HCL 10 MG TABLET (FOR DETOX USE ONLY) PO ONE ×2 (19:56→23:00)
[2018-02-16] MEDS ORDERED: IBUPROFEN 400 MG TABLET (FP) PO PRN (19:56)
[2018-02-16] MEDS ORDERED: MAG HYDROX/AL HYDROX/SIMETH 30 ML UNIT-DOSE CUP PO PRN (19:56)
[2018-02-16] MEDS ORDERED: MAGNESIUM CITRATE 300 ML BOTTLE PO PRN (19:56)
[2018-02-16] MEDS ORDERED: ACETAMINOPHEN 325 MG TABLET (FP) PO PRN (19:56)
[2018-02-16] MEDS ORDERED: MAGNESIUM HYDROX 2400MG/30ML ORAL SUSPENSION 30 ML CUP PO PRN (19:56)
[2018-02-16] MEDS ORDERED: guaiFENesin/D-METHORPHAN HB 10 ML UNIT-DOSE CUPS PO PRN (19:56)
[2018-02-16] MEDS ORDERED: diazePAM 5 MG TABLET PO ONE (19:56)
[2018-02-16] MEDS ORDERED: hydrOXYzine PAMOATE 50 MG CAPSULE (FP) PO PRN (19:56)
[2018-02-16] MEDS ORDERED: LOPERAMIDE HCL 2 MG CAPSULE PO PRN (19:56)
[2018-02-16] MEDS ORDERED: MELATONIN 5 MG TABLETS PO PRN (22:00)
[2018-02-16] MEDS: THIAMINE HCL 100 MG TABLET (FP) PO SCH (22:03)
[2018-02-16] MEDS: diazePAM 5 MG TABLET PO SCH (23:03)
[2018-02-17] MEDS: diazePAM 5 MG TABLET PO SCH ×3 (05:46→22:34)
[2018-02-17] MEDS ORDERED: METHADONE HCL 10 MG TABLET (FOR DETOX USE ONLY) PO SCH (10:00)
[2018-02-17] MEDS: PRENATAL VITAMINS W/ FOLIC ACID TABLET (FP) PO SCH (10:31)
[2018-02-17 10:40] LABS: HEMATOCRIT 37.7 % (35.4-49); HEMOGLOBIN 12.7 GM/dL (11.7-16.9); MCH 29.9 pg (25.7-33.7); MCHC 33.8 g/dl (32.0-35.9); MEAN CELL VOLUME 88.4 fl (80-96); MEAN PLT VOLUME 9.8 fl (7.5-11.1); PLATELET COUNT 187 K/MM3 (134-434); RBC 4.26 M/mm3 (4.00-5.60); RDW 14.5 % (11.9-15.9); WHITE BLOOD COUNT 4.6 K/mm3 (4.0-10.0)
--- NOTE | 2018-02-17 10:45 | PN ---
S CIWA - CIWA Score Nausea/Vomitin Muscle Tremors: 2 Anxiety: 3 Agitation: 2 Paroxysmal Sweats: 3 Orientation: 0-Oriented Tacttile Disturbances: 1-Very Mild Itch/Numbness Auditory Disturbances: 1-Very Mild Visual Disturbances: 0-None Headache: 2-Mild CIWA-Ar Total Score: 16 BHS COWS - Scale Resting Pulse: 0= [place] 80 or Below Sweatin= Chills/Flushing Restless Observation: 1= Difficult to Sit Still Pupil Size: 5= Only [place] Seen Bone or Joint Aches: 1= Mild Discomfort Runny Nose/ Eye Tearin= Runny Nose/Eyes GI Upset > 30mins: 1= Stomach Cramp Tremor Observation of Outstretched Hands: 1= Tremor [place], Not Seen Yawning Observation: 0= None Anxiety or Irritability: 2=Irritable/Anxious Goose Flesh Skin: 0=Smooth Skin COWS Score: 14 BHS Progress Note (SOAP) Subjective: Generalized pain, shakes, sweats, interrupted sleep and generalized malaise Objective: 02/17/18 10:44 Vital Signs 02/17/18 02/17/18 02/17/18 03:30 06:13 06:30 Temperature 97.7 F Pulse Rate 64 Respiratory 18 18 16 Rate Blood Pressure 110/58 02/17/18 10:00 Temperature 96.6 F L Pulse Rate 67 Respiratory 18 Rate Blood Pressure 127/79 Laboratory Last Values WBC 4.6 K/mm3 (4.0-10.0) 02/17/18 07:40 RBC 4.26 M/mm3 (4.00-5.60) 02/17/18 07:40 Hgb 12.7 GM/dL (11.7-16.9) 02/17/18 07:40 Hct 37.7 % (35.4-49) 02/17/18 07:40 MCV 88.4 fl (80-96) 02/17/18 07:40 MCH 29.9 pg (25.7-33.7) 02/17/18 07:40 MCHC 33.8 g/dl (32.0-35.9) 02/17/18 07:40 RDW 14.5 % (11.9-15.9) 02/17/18 07:40 Plt Count 187 K/MM3 (134-434) 02/17/18 07:40 MPV 9.8 fl (7.5-11.1) D 02/17/18 07:40 Partial abs noted, others pending Assessment: 02/17/18 10:45 Withdrawal sx Plan: Continue detox
[2018-02-17 10:52] LABS: ALBUMIN 2.9 g/dl (3.4-5.0); ANION GAP 8 (8-16); BLOOD UREA NITROGEN 17 mg/dL (7-18); CALCIUM 8.5 mg/dL (8.5-10.1); CHLORIDE 103 mmol/L (98-107); CO2 27 mmol/L (21-32); POTASSIUM 4.4 mmol/L (3.5-5.1); SODIUM 138 mmol/L (136-145)
[2018-02-17 10:58] LABS: ALK PHOS 123 U/L (45-117); BILIRUBIN,TOTAL 0.4 mg/dL (0.2-1.0); CREATININE 0.8 mg/dL (0.7-1.3); GLUCOSE,RANDOM 98 mg/dL (74-106); SGOT/AST 77 U/L (15-37); SGPT/ALT 84 U/L (12-78); TOT PROT 6.5 g/dl (6.4-8.2)
--- NOTE | 2018-02-17 14:39 | EKG ---
Test Reason : Blood Pressure : / mmHG Vent. Rate : 063 BPM Atrial Rate : 063 BPM P-R Int : 136 ms QRS Dur : 104 ms QT Int : 422 ms P-R-T Axes : 008 045 048 degrees QTc Int : 431 ms NORMAL SINUS RHYTHM NORMAL ECG WHEN COMPARED WITH ECG OF 20-OCT-2017 22:25, NO SIGNIFICANT CHANGE WAS FOUND Confirmed by MD Worrell Daniel ([id number]) on 02/17/2018 2:39:19 PM Referred By: Confirmed By:Yfn Worrell MD
--- NOTE | 2018-02-17 15:04 | CONSULT ---
[facility] Psychiatric Consult - Data Date of interview: 02/17/18 Admission source: [facility] Identifying data: Second admission to [facility] for this 37 y/o male seeking detox treatment on for alcohol and heroin dependence ( toxicology positive for cocaine and benzodiazepine as well).Patient is , no children,homeless,unemployed and reportedly supported on Public Assistance. Substance Abuse History: Smoking history: Current every day smoker. Have you smoked in the past 12 months: Yes. Aproximately how many cigarettes per day: 2. Hx Chewing Tobacco Use: No. Initiated information on smoking cessation: Yes. 'Breaking Loose' booklet given: 02/16/18. - Substance & Tx. History. Hx Alcohol Use: Yes. Hx Substance Use: Yes. Substance Use Type: Alcohol, Cocaine , Heroin, Opiates (illict methadone ). - Substances Abused. Heroin. Route : Injection. Frequency: Daily. Amount used: 6 BAGS. Age of first use: 22. Date of Last Use: 02/15/18. Alcohol. Route: Oral. Frequency: Daily. Amount used: 6 PACKS. Age of first use: 22. Date of Last Use: 02/16/18. Cocaine. Route: Injection. Frequency: 3-6 times per week. Amount used: $10. Age of first use: 14. Date of Last Use: 02/15/18 Medical History: Hepatitis C. Psychiatric History: History of one psychiatric hospitalization at [facility] ( 2017).Precipitant : of .Diagnosed with MDD.Patient used to be prescribed celexa 20 mg/day + trazodone 25 mg/hs.Mr Maciel indicates that he stopped psychiatric OPD care after a few months.Off psychotropic medications.Denies history of suicide attempts. Physical/Sexual Abuse/Trauma History: Traumatized by the of his ( circumstances not disclosed by patient).Coping well (self-report) with his loss. Additional Comment: Urine Drug Screen Results: MIS-Cocaine, OPI-Opiates, BZO- Benzodiazepines, MTD-Methadone.Noted. Mental Status Exam - Mental Status Exam Alert and Oriented to: Time, Place, Person Cognitive Function: Good Patient Appearance: Well Groomed Mood: Withdrawn, Anxious, Apprehensive Affect: Appropriate, Mood Congruent Patient Behavior: Appropriate, Cooperative Speech Pattern: Clear, Appropriate Voice Loudness: Normal Thought Process: Intact, Goal Oriented Thought Disorder: Not Present Hallucinations: Denies Suicidal Ideation: Denies Insight/Judgement: Poor Sleep: Poorly, Difficulty falling asleep Appetite: Good Muscle strength/Tone: Normal Gait/Station: Normal Psychiatric Findings - Problem List ([place] 1, 2,3) (1) Opioid dependence with withdrawal Current Visit: Yes Status: Acute (2) Alcohol dependence with uncomplicated withdrawal Current Visit: Yes Status: Acute (3) Cocaine dependence with withdrawal Current Visit: Yes Status: Acute (4) Substance induced mood disorder Current Visit: Yes Status: Acute (5) Insomnia Current Visit: Yes Status: Acute - Initial Treatment Plan Initial Treatment Plan: Psychoeducation.Detoxification.Sleep hygiene.Ambien 10 mg po hs prn.Patient is made aware of risk of sleep-walking.Mr Maciel agrees with this careplan.Observation.
[2018-02-17] MEDS ORDERED: ZOLPIDEM TARTRATE 5 MG TABLET PO PRN (22:00)
[2018-02-17] MEDS: THIAMINE HCL 100 MG TABLET (FP) PO SCH (22:34)
[2018-02-18] MEDS ORDERED: diazePAM 5 MG TABLET PO SCH (10:00)
[2018-02-18] MEDS ORDERED: METHADONE HCL 5 MG TABLET (FOR DETOX USE ONLY) PO SCH (10:00)
[2018-02-18 10:03] VITALS: BP 125/76; PULSE 61; TEMP 97.7
[2018-02-18] MEDS: PRENATAL VITAMINS W/ FOLIC ACID TABLET (FP) PO SCH (10:29)
--- NOTE | 2018-02-18 14:09 | DS ---
[facility] Detox Discharge Summary Admission Date: 02/16/18 Discharge Date: 02/18/18 - History Present History: Alcohol Dependence, Cocaine Dependence, Opioid Dependence Pertinent Past History: HTN Seizure disorder (drug induced) - Physical Exam Results Vital Signs: Vital Signs Temperature 97.7 F 02/18/18 10:02 Pulse Rate 61 02/18/18 10:02 Respiratory Rate 18 02/18/18 10:02 Blood Pressure 125/76 02/18/18 10:02 O2 Sat by Pulse Oximetry (%) Pertinent Admission Physical Exam Findings: Withdrawal symptoms Laboratory Tests 02/17/18 02/17/18 02/17/18 07:40 07:40 07:40 WBC 4.6 RBC 4.26 Hgb 12.7 Hct 37.7 MCV 88.4 MCH 29.9 MCHC 33.8 RDW 14.5 Plt Count 187 MPV 9.8 D Sodium 138 Potassium 4.4 Chloride 103 Carbon Dioxide 27 Anion Gap 8 BUN 17 Creatinine 0.8 Creat Clearance w eGFR > 60 Random Glucose 98 Calcium 8.5 Total Bilirubin 0.4 AST 77 H D ALT 84 H Alkaline Phosphatase 123 H Total Protein 6.5 Albumin 2.9 L RPR Titer Nonreactive Labs reviewed - Medication Discharge Medications: Ambulatory Orders NK [No Known Home Medication] 02/16/18 - Diagnosis (1) Depression Status: Chronic (2) Drug-induced seizure Status: Chronic (3) Alcohol dependence with uncomplicated withdrawal Status: Acute (4) Cocaine dependence with withdrawal Status: Chronic (5) Insomnia Status: Acute (6) Opioid dependence with withdrawal Status: Acute (7) Hypertension Status: Chronic Qualifiers: Hypertension type: essential hypertension Qualified Code(s): I10 - Essential (primary) hypertension (8) Nicotine dependence Status: Chronic Qualifiers: Nicotine product type: cigarettes Substance use status: uncomplicated Qualified Code(s): F17.210 - Nicotine dependence, cigarettes, uncomplicated - AMA Did Patient Leave Against Medical Advice: Yes (Follow up with your PCP within 3 days)
[2018-02-20] MEDS ORDERED: METHADONE HCL 10 MG TABLET (FOR DETOX USE ONLY) PO SCH (10:00)
[2018-02-20] MEDS ORDERED: diazePAM 5 MG TABLET PO SCH (10:00)
[2018-02-21] MEDS ORDERED: METHADONE HCL 5 MG TABLET (FOR DETOX USE ONLY) PO SCH (06:00)
== END 2018-02-18 13:20 | disposition left against medical advice (07) | DRG 770 ==
LOC: YASAS 16:51 → Y6N 18:41
PROVIDERS: ADMIT Internal Medicine; ATTEND Internal Medicine
PROC: HZ2ZZZZ Detoxification Services for Substance Abuse Treatment (ICD-10-PCS; principal; 2018-02-16)
DX: F11.23 Opioid dependence with withdrawal (principal); F10.230 Alcohol dependence with withdrawal, uncomplicated; F14.23 Cocaine dependence with withdrawal; F17.210 Nicotine dependence, cigarettes, uncomplicated; F19.24 Other psychoactive substance dependence with psychoactive substance-induced mood disorder; F32.9 Major depressive disorder, single episode, unspecified; I10 Essential (primary) hypertension; Z86.69 Personal history of other diseases of the nervous system and sense organs; Z86.19 Personal history of other infectious and parasitic diseases; Z59.0 Homelessness
CPT/HCPCS: 36415; 80053; 85027; 86593; 93005; 93010